=== PATIENT | male | born 1955 | race Caucasian/White ===

== ENCOUNTER 2024-11-15 11:23 | Emergency (ER) | payer MEDICARE, BC ==
[2024-11-15] MEDS: Ketorolac 30 MG/ML SDV IM ONE (12:04)
== END 2024-11-15 12:30 | disposition home or self-care (01) ==
LOC: DL.ED 11:23
DX: S49.92XA Unspecified injury of left shoulder and upper arm, initial encounter (principal); Z79.899 Other long term (current) drug therapy; W18.39XA Other fall on same level, initial encounter; Y93.89 Activity, other specified
CPT/HCPCS: 73060; 96372; 99282; 99283; A9270; J1885